=== PATIENT | male | born 1965 ===

== ENCOUNTER 2019-11-22 08:36 | Outpatient (RCR) | payer OTHER, SELFPAY ==
--- NOTE | 2019-11-22 10:00 | PTOPEVAL ---
Thank you for referring this patient to [facility]. Please review, sign, date and return this plan of care BRY. Pt referred to therapy following below knee amputation for gait training with new prosthesis. He demonstrates impairments with balance, functional mobility, and understanding of proper use of prosthesis. Recommend additional PT 3x/wk x 6 wk. I agree with and certify that the following plan of care is medically necessary. Referring Physician Date Attending Provider: Rajesh Biswas MD Referring Provider: *PT Outpatient Evaluation Start: 11/22/19 08:30 Freq: Status: Active Protocol: Document 11/22/19 08:45 CAP (Rec: 11/22/19 09:59 CAP [id number]) Therapy Assessment Status Assessment Status Assessment Status Evaluation Outpatient Past Medical History Neurological History Hx Neurological Disorders No Significant History Cardiovascular History Hx Hypertension Yes Hx Peripheral Vascular Disease Yes: foot ulcer, left BKA Respiratory History Hx Respiratory Disorders No Significant History Gastrointestinal History Hx Gastrointestinal Disorders No Significant History Musculoskeletal History Hx Other Musculoskeletal Disorders Yes: herniated disc neck, s/p fusion '08 Endocrine History Hx Diabetes Yes Psychosocial History Hx Depression Yes Evaluation Information Problem Diagnosis amputation Onset 05/26/19 Cause ulcer Additional Evaluation Detail diabetic ulcer left great toe- 11/24 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 BKA 05/26/19. pt has gained 18# since the amputation. Subjective Information Pt was in the hospital for 6 Query Text:As Reported By Patient/ days following amputation then Family 6 days in rehab. He received home health therapy for a few weeks. He received his prosthesis from [employer]. Stopped using AD 8 days ago. He feels like he is doing okay with the prosthesis. He is wearing his prosthesis 4-6 hours at a time. He is wearing 0-7 sock ply. Pt had 2 falls, 1 in the
--- NOTE | 2020-01-10 13:23 | PCPTNOTE ---
Admitting Provider: Attending Provider: Rajesh Biswas MD Patient:Eugenio Solorzano Date of :1965 Discharge Note Patient has not returned for any further treatments since 11/22/2019, therefore he will be discharged at this time. Patient?s initial visit was on 11/22/2019 08:30 and he had a total of 1 visits. The goals have been not met. Thank you [facility]. Please review, sign, date and return this discharge summary BRY. I have been updated about the patient's current status and I agree with discharge from the above service at this time. Referring Physician Date
== END 2020-01-11 09:22 | disposition home or self-care (01) ==
LOC: ANHPT 08:36
PROVIDERS: Visit Provider Specialist
DX: Z89.512 Acquired absence of left leg below knee (principal)
CPT/HCPCS: 97162